=== PATIENT | male | born 1960 | race Caucasian/White ===

== ENCOUNTER 2016-08-11 10:04 | Emergency (ER) | payer SELFPAY ==
[2016-08-11 10:05] VITALS: BMI 27.7
--- NOTE | 2016-08-11 10:20 | ED PDOC ---
Arrival/HPI - General Chief Complaint: Palpitations Time Seen by Provider: 08/11/16 10:16 Historian: Patient - History of Present Illness Narrative History of Present Illness (Text): 08/11/16 10:05 Hugh Trujillo is a 36 year old male, who denies significant past medical history aside from being a smoker, presents to the emergency department complaining of shortness of breath and chest discomfort prior to arrival. Patient states that he was at work when he began to feel palpitations, "hot", chest discomfort and shortness of breath while at work, approximately half hour prior to arrival. Patient notes that he has been feeling slight chest pressure for the past couple of days. Patient denies any lightheadedness, dizziness, or any other complaint at this time. He denies injury. Denies arm or back pain. Denies calf pain or swelling. Denies prior history of these symptoms. PMD: None Time/Duration: Prior to Arrival Symptom Onset: Sudden Symptom Course: Unchanged Severity Level: Mild Activities at Onset: Light Context: Work Past Medical History - Provider Review Nursing Documentation Reviewed: Yes - Infectious Disease Hx of Infectious Diseases: None - Psychiatric Hx Substance Use: No Family/Social History - Physician Review Nursing Documentation Reviewed: Yes Family/Social History: No Known Family HX Smoking Status: Heavy Smoker > 10 Cigarettes Daily Hx Alcohol Use: Yes Frequency of alcohol use: Socially Hx Substance Use: No Allergies/Home Meds Allergies/Adverse Reactions: Allergies No Known Allergies Allergy (Verified 08/11/16 10:06) Home Medications: Home Meds Medication Instructions Recorded Confirmed No Known Home Med 08/11/16 08/11/16 Review of Systems - Review of Systems Constitutional: Fatigue. absent: Fevers, Night Sweats Eyes: absent: Vision Changes ENT: absent: Hearing Changes, Voice Changes, Rhinorrhea, Epistaxis Respiratory: SOB. absent: Cough, Wheezing Cardiovascular: Chest Pain (Chest discomfort), Palpitations. absent: Edema, Calf Pain, CARTER, Syncope Gastrointestinal: absent: Abdominal Pain, Diarrhea, Food Intolerance Genitourinary Male: absent: Dysuria, Urinary Output Changes Musculoskeletal: absent: Arthralgias, Back Pain, Neck Pain Skin: absent: Rash Neurological: absent: Headache, Dizziness, Focal Weakness Endocrine: absent: Diaphoresis Hemo/Lymphatic: absent: Adenopathy, Easy Bleeding Psychiatric: absent: Anxiety, Depression Physical Exam - Physical Exam Narrative Physical Exam (Text): Head: Atraumatic. Normocephalic. Eyes: PERRL. EOMI. Conjunctivae are not pale. ENT: Mucous membranes are moist and intact. Oropharynx is clear and symmetric. Neck: Supple. Full ROM. No JVD. No lymphadenopathy. No palpable thyroid masses. No meningeal signs. Cardiovascular: Tachycardic. Distal pulses intact. Pulmonary/Chest: No evidence of respiratory distress. Tachypneic. No wheezes, rales or rhonchi. Abdominal: Soft and non-distended. There is no tenderness. No rebound, guarding, or rigidity. No organomegaly. Good bowel sounds. Back: No CVA tenderness. Extremities: No edema. No cyanosis. No clubbing. Full range of motion in all extremities. No calf tenderness. Skin: Skin is warm and dry. No petechiae. No purpura. No diaphoresis. Neurological: Alert, awake, and oriented. No facial droop. Motor and sensory exam intact. Psychiatric: Good eye contact. Anxious, tearful but otherwise appropriate. Denies suicidal or homicidal ideation. Vital Signs Reviewed: Yes Vital Signs Temp Pulse Resp BP Pulse Ox 08/11/16 12:11 79 16 124/91 H 100 08/11/16 10:58 95 H 21 122/82 98 08/11/16 10:04 97.9 F 89 18 121/65 97 Temperature: Afebrile Pulse: Tachycardic Respiratory Rate: Tachypneic Appearance: Positive for: Ill-Appearing Pain Distress: Mild Mental Status: Positive for: Alert and Oriented X 3 Medical Decision Making ED Course and Treatment: 08/11/16 10:05 Impression: 36 year old complaining of shortness of breath and chest discomfort prior to arrival. He is noted to be in SVT when placed on monitor. Plan: EKG, monitor, adenosine, labs Progress Notes: Patient seen immediately upon arrival. He is alert, oriented, no respiratory distress but is anxious and tearful regarding the way he feels. He reports sudden onset of symptoms prior to arrival. On monitor, initial rhythm consistent with SVT. I discussed abnormal heart rate with patient and treatment plan. IV established. Risks/benefits and side effects of adenosine reviewed with patient. Adenosine 6 mg ivp given with no improvement of heart rhythm. Additional second dose of Adenosine 12 mg iv given and there is conversion of rhythm to normal sinus rhythm. EKG repeated. Patient reports complete resolution of any discomfort. Denies chest pain, denies shortness of breath, denies abdominal pain, denies nausea or vomiting. Labs drawn and patient monitored and observed. 08/11/16 11:00 Chest X-ray: Creator : Figueroa Torres MD FINDINGS: LUNGS:No active pulmonary disease. PLEURA:No significant pleural effusion identified, no pneumothorax apparent. CARDIOVASCULAR:Normal. OSSEOUS STRUCTURES:No significant abnormalities. VISUALIZED UPPER ABDOMEN:Normal. OTHER FINDINGS:None. IMPRESSION: No active disease. Patient remains in normal sinus rhythm on monitor, continues to currently deny any chest pain or sob. Smoking risk discussed with patient. He denies prior history of cardiac disease, denies family hx of CAD. I have recommended admission to hospital for history of dvt as well as history of chest pain described prior to today. with witnesses present, and discussed in laymens terms, I discussed with him risk of cardiac disease, and limitations of current studies for complete evaluation. Patient has been told with Pricilla Arguello RN witness that symptomatic heart rhythm may reoccur and risk of heart attack, stroke, , disability, collapse. He states he is comfortable, is able to repeat back these risks and proposed treatment plan. He states he has things to "take care of at home" and "I have a lot of things going on" and states he wishes to be discharged and he will follow -up with his doctors. I have strongly and repeatedly advised against leaving the hospital, despite this patient will sign out against medical advice. 08/11/16 12:23 Leaving Against Medical Advice (AMA): The patient is choosing to leave against medical advice. I have personally explained to the patient that choosing to do so may result in permanent bodily harm or . I have discussed at great length that without further evaluation and monitoring there may be unforeseen circumstances and/or deterioration causing permanent bodily harm or as a result of their choice. The patient is alert, oriented, and shows the mental capacity to make clear decisions regarding the patients health care at this time. The patient continues to wish to leave against medical advice. The patient has been advised that they should return to the emergency room immediately if they change their mind at any time, or if their condition begins to change or worsen in any way. 08/11/16 16:29 Reassessment Condition: Improved - Lab Interpretations Lab Results: 08/11/16 10:18 08/11/16 10:18 Lab Results 08/11/16 10:18: Sodium 139, Potassium 4.0, Chloride 107, Carbon Dioxide 23, Anion Gap 13, BUN 14, Creatinine 1.1, Est GFR ( Amer) > 60, Est GFR (Non- Af Amer) > 60, Random Glucose 109, Calcium 9.2, Total Bilirubin 0.9, AST 28, ALT 43, Alkaline Phosphatase 92, Lactate Dehydrogenase 497, Total Creatine Kinase 128, Troponin I < 0.01, Total Protein 7.8, Albumin 4.3, Globulin 3.5, Albumin/Globulin Ratio 1.2 08/11/16 10:18: PT 11.4, INR 1.06, APTT 33.4 H, D-Dimer, Quantitative 0.44 08/11/16 10:18: WBC 7.3, RBC 5.21, Hgb 15.7, Hct 44.8, MCV 86.0, MCH 30.1, MCHC 35.0, RDW 14.1, Plt Count 283, MPV 11.5 H, Gran % 58.4, Lymph % (Auto) 29.7, Williamson % (Auto) 8.8 H, Eos % (Auto) 2.6, Baso % (Auto) 0.5, Gran # 4.27, Lymph # 2.2, Williamson # 0.6, Eos # 0.2, Baso # 0.04 - RAD Interpretation Radiology Orders: 08/11/16 10:18 CHEST PORTABLE [RAD] Stat Logging Rafter Laborer: Radiologist - EKG Interpretation EKG Interpretation (Text): 08/11/16 10:09 supraventricular tachycardia rate of [address] and t wave abnormality EKG repeated at 10:18 normal sinus rhythm rate of 97 with incomplete right bundle branch block Interpreted by ED Physician: Yes Type: 12 lead EKG Comparison: No previous EKG avail. - Medication Orders Current Medication Orders: Discontinued Medications Adenosine (Adenosine 6 Mg/2 Ml Inj) Confirm Administered Dose 6 mg .ROUTE .STK- MED ONE Stop: 08/11/16 10:10 Last Admin: 08/11/16 10:10 Dose: 6 mg Adenosine (Adenosine 6 Mg/2 Ml Inj) 12 mg IVP STAT STA Stop: 08/11/16 10:17 Last Admin: 08/11/16 10:16 Dose: 12 mg Adenosine (Adenosine 6 Mg/2 Ml Inj) 6 mg IVP STAT STA Stop: 08/11/16 10:16 Last Admin: 08/11/16 10:25 Dose: Aspirin (Aspirin Chewable) 81 mg PO STAT STA Stop: 08/11/16 10:20 Last Admin: 08/11/16 10:26 Dose: 81 mg - Scribe Statement The provider has reviewed the documentation as recorded by the Opal Silva Provider Scribe Attestation: All medical record entries made by the Opal were at my direction and personally dictated by me. I have reviewed the chart and agree that the record accurately reflects my personal performance of the history, physical exam, medical decision making, and the department course for this patient. I have also personally directed, reviewed, and agree with the discharge instructions and disposition. Disposition/Present on Arrival - Present on Arrival Any Indicators Present on Arrival: No History of DVT/PE: No History of Uncontrolled Diabetes: No Urinary Catheter: No History of Decub. Ulcer: No History Surgical Site Infection Following: None - Disposition Have Diagnosis and Disposition been Completed?: Yes Diagnosis: SVT (supraventricular tachycardia), Chest pain Disposition: AGAINST MEDICAL ADVICE Disposition Time: 12:10 Patient Plan: Discharge Condition: GOOD Discharge Instructions (ExitCare): Chest Pain (ED) Referrals: PCP,NO [Primary Care Provider] - Follow up with primary
[2016-08-11 10:23] VITALS: TEMP 97.9
[2016-08-11 10:29] LABS: ADD MANUAL DIFF? NO
[2016-08-11 10:37] LABS: BASO # 0.04 K/mm3 (0.0-2.0); BASO % 0.5 % (0.0-3.0); EOS # 0.2 (0.0-0.7); EOS % 2.6 % (1.5-5.0); GRAN # 4.27 (1.4-6.5); GRAN % 58.4 % (50.0-68.0); HEMATOCRIT 44.8 % (42.0-52.0); LYMPH # 2.2 (1.2-3.4); LYMPH % 29.7 % (22.0-35.0); MEAN CORPUSCULAR HEMOGLOBIN 30.1 pg (25.0-35.0); MEAN PLATELET VOLUME 11.5 fl (7.0-11.0); MONO # 0.6 (0.1-0.6); MONO % 8.8 % (1.0-6.0); PLATELET COUNT 283 10^3/uL (120.0-450.0); RED CELL DISTRIBUTION WIDTH 14.1 % (11.5-14.5); WHITE BLOOD COUNT 7.3 10^3/ul (4.5-11.0)
[2016-08-11 10:41] LABS: ALB/GLOB RATIO 1.2 (1.1-1.8); ALKALINE PHOSPHATASE 92 U/L (38-133); ALT/SGPT 43 U/L (7-56); AST/SGOT 28 U/L (15-59); BILIRUBIN,TOTAL 0.9 mg/dL (0.2-1.3); BLOOD UREA NITROGEN 14 mg/dL (7-21); CALCIUM 9.2 mg/dL (8.4-10.5); CARBON DIOXIDE 23 mmol/L (21-33); CHLORIDE 107 mmol/L (98-107); GFR AFRICAN-AMERICAN > 60; GLUCOSE,RANDOM 109 mg/dL (70-110); SODIUM 139 mmol/L (132-148); TOTAL PROTEIN 7.8 g/dL (5.8-8.3)
[2016-08-11 10:54] LABS: TROPONIN I < 0.01 ng/mL
--- NOTE | 2016-08-11 10:54 | RAD ---
HISTORY: chest pain COMPARISON: No prior. FINDINGS: LUNGS: No active pulmonary disease. PLEURA: No significant pleural effusion identified, no pneumothorax apparent. CARDIOVASCULAR: Normal. OSSEOUS STRUCTURES: No significant abnormalities. VISUALIZED UPPER ABDOMEN: Normal. OTHER FINDINGS: None. IMPRESSION: No active disease.
[2016-08-11 11:09] LABS: INR 1.06 (0.93-1.08); PARTIAL THROMBOPLASTIN TIME 33.4 Seconds (23.7-30.8)
[2016-08-11 11:28] LABS: D DIMER 0.44 mg/L FEU (0-0.50)
[2016-08-11 12:15] VITALS: BP 124/91; PULSE 79; RESP 16; O2SAT 100
--- NOTE | 2016-08-11 14:43 | CARD ---
APPROVED REPORT EKG Measurement Heart [id number] <Conclusion> Supraventricular tachycardia Nonspecific ST and T wave abnormality Abnormal ECG
--- NOTE | 2016-08-11 15:06 | CARD ---
APPROVED REPORT EKG Measurement Heart [id number] <Conclusion> Normal sinus rhythm Incomplete right bundle branch block Leftward axis
== END 2016-08-11 12:15 | disposition left against medical advice (07) ==
LOC: ED 10:04
DX: I47.1 Supraventricular tachycardia (principal); R07.9 Chest pain, unspecified
CPT/HCPCS: 71010; 80053; 82550; 83615; 84484; 85025; 85378; 85610; 85730; 93005; 96374; 99285; J0153